=== PATIENT | female | born 1990 | race African-American/Black ===

== ENCOUNTER 2024-07-14 11:42 | Emergency (ER) | payer BC, SELFPAY ==
[2024-07-14 11:46] VITALS: BP 126/71
[2024-07-14 12:08] LABS: % Basophils 0.3 % (0-2); % Immature Granulocytes 0.4 % (0-0.5); % Lymphocytes 24.4 % (20.5-51.1); % Monocytes 4.5 % (1.7-9.3); % Neutrophils 69.4 % (42.2-75.2); Absolute Eosinophils 0.1 10^3/uL (0-0.7); Absolute Lymphocytes 2.5 10^3/uL (1.2-3.4); Absolute Monocytes 0.5 10^3/uL (0.1-0.6); Absolute Neutrophils 7.2 10^3/uL (1.4-6.5); Hematocrit 36.2 % (37.0-47.0); Mean Corp Hgb Conc. 33.1 g/dL (33.0-37.0); Mean Corpuscular Hgb 27.2 pg (27.0-31.0); Mean Corpuscular Volume 82.1 fL (81.0-99.0); Mean Platelet Volume 9.2 fL (7.4-10.4); Nucleated Red Blood Cells % 0 %; Platelet Count 400 10^3/uL (130-400); Red Blood Cell Count 4.41 10^6/uL (4.20-5.40); Red Cell Dist. Width 14.2 % (11.5-14.5); White Blood Cell Count 10.3 10^3/uL (4.8-10.8)
[2024-07-14 12:24] LABS: ALT (SGPT) 24 U/L (0-35); AST (SGOT) 19 U/L (14-36); Albumin 3.7 g/dl (3.5-5.0); Alkaline Phosphatase 93 U/L (38-126); Blood Urea Nitrogen 7 mg/dl (7-17); Calcium 9.2 mg/dl (8.4-10.2); Carbon Dioxide 18 mmol/L (22-30); Chloride 108 mmol/L (98-107); Glucose 118 mg/dl (70-99); Potassium 4.1 mmol/L (3.5-5.1); Sodium 134 mmol/L (135-145); Total Bilirubin 0.5 mg/dl (0.2-1.3); Total Protein 6.8 g/dl (6.3-8.2); eGFR > 60.00
--- NOTE | 2024-07-14 12:29 | ED.GENMED ---
History of Present Illness
General
Chief Complaint: Problems
Source: patient
Exam Limitations: none
Time Seen by Provider: 07/14/24 12:25
History of Present Illness
History of Present Illness:
See MDM
Past History
Past History
ED Past Medical History: Other (HIV)
ED Past Surgical History:
Social History
Tobacco: Non-smoker
Alcohol: None
Phy Exam
Physical Exam
Physical Exam:
See MDM
Course
Orders/Labs/Results
Orders:
Orders
07/14/24 11:53
Type+Screen Urgent
Complete Blood Count/With Diff Urgent
Comprehensive Metabolic Panel Urgent
HCG,SERUM [Beta HCG Quantitative] Urgent
Is this a screen?: No
07/14/24 12:28
US W Transvaginal Urgent
Reason For Exam: abd pain and vag bleeding
07/14/24 12:39
ABO2 Urgent
BBK Wristband Number:
Associate notified that ABO2 has been ordered: ATIFF-ER
Date: 07/14/24
Time: 12:01
Display Specialist ID: [id number]
Abnormal Lab Results
07/14/24
11:53
Hct 36.2 L %
(37.0-47.0)
Absolute Neuts (auto) 7.2 H 10^3/uL
(1.4-6.5)
Sodium 134 L mmol/L
(135-145)
Chloride 108 H mmol/L
(98-107)
Carbon Dioxide 18 L mmol/L
(22-30)
Glucose 118 H mg/dl
(70-99)
07/14/24 11:53
07/14/24 11:53
Vital Signs
Initial and Last Documented VS:
Initial Vital Signs
Temp Pulse Resp BP Pulse Ox
98.5 F 87 16 126/71 100
07/14/24 11:46 07/14/24 11:46 07/14/24 11:46 07/14/24 11:46 07/14/24 11:46
Last Documented Vital Signs
Temp Pulse Resp BP Pulse Ox
98.5 F 87 16 126/71 100
07/14/24 11:46 07/14/24 11:46 07/14/24 11:46 07/14/24 11:46 07/14/24 11:46
Information
Weeks gestation: Weeks: (7)
Location: Location: ([facility])
MDM/Problems Addressed
Differential Diagnosis Includes:
HPI and MDM Narrative:
33-year-old female at approximately 8 weeks gestation is presenting with mild abdominal cramping and vaginal bleeding. She noted some blood while she was wiping.
On exam, she is well-appearing nontoxic. Abdomen soft and nontender. Will obtain beta-hCG quantitative and will obtain ultrasound
Physical exam
General: Well appearing and non-toxic
HEENT: protecting airway
Neck: appears supple
CV: No evidence of cyanosis
Resp: No accessory muscle use
Abd: Non-distended. Soft and nontender
Extremities: No deformities
Neuro: alert
Psych: Normal affect
Skin: Intact
Problems Addressed including Acute and Chronic Conditions affecting care:
1. First trimester vaginal bleeding
Acuity: acute
Prognosis: stable
Details: Will obtain beta quant hCG and ultrasound
Updates
Ultrasound confirms [facility] at 7 weeks and 4 days with appropriate heartbeat. Discussed follow-up with OB
Differential Diagnosis (but not limited to): Miscarriage, threatened miscarriage
Testing considered: Urinalysis but she denies symptom
Drug therapy (if applicable): OTC meds, please see d/c instruction regarding Rx drugs
Amount and/or Complexity of Data Reviewed
Clinical info obtained from: Patient
External data reviewed: N/A
Labs I independently reviewed (but not limited to): Beta-hCG. Blood type A+
Radiology: Ultrasound report reviewed
Pulse Ox: not hypoxic
EKG independently reviewed: N/A
Healthcare Administrator: N/A
Critical Care: N/A
Risk of Complication:
Social Determinants of health: Good social support
Discussed with other providers: N/A
Escalation of Care includes Admit/Obs: After being observed in the Emergency Department, pt stable for discharge.
Occasional wrong word or 'sound a like' substitutions may have occurred due to the inherent limitations of voice recognition software. Read the chart carefully and recognize, using context, where substitutions have occurred.
*Critical Care Note
Total Time (30-74mins, 75-104mins- exclusive of procedures): Not Applicable
ED Attending Note
-
Portions of this chart may have been created with voice recognition software.� Occasional wrong word or��sound alike� substitutions may have occurred due to the inherent limitations of voice recognition software.
Discharge Plan
Departure
Patient Disposition: Home (Routine Discharge)
Date of Disposition: 07/14/24
Time of Disposition: 14:57
Patient with high blood pressure during this ER visit?: No
Discharge Problem:
First-trimester bleeding
Instructions: symptoms
Prescriptions:
No Action
Biktarvy
1 tab PO DAILY
albuterol sulfate 90 mcg/actuation aerosol powdr breath activated
2 inh inhalation Q6H PRN (Reason: shortness of breath or wheezing) Qty: 1 0RF
(DME) Space Chamber Spacer
See Rx Instructions .Route Qty: 1 0RF
Rx Instructions:
As directed
cephalexin 500 mg capsule
500 mg PO Q8H Qty: 21 0RF
Referrals:
Yaritza Stiles, DO [Family Provider] -
Activity Restrictions/Additional Instructions:
Please return for any worsening symptoms.
You may return at any time if you have further concerns.
Please follow up with your OB at the first available appointment. Your baby is measuring 7 weeks and 4 days.
Thank you for choosing [facility].
Interventions
Interventions:
*Risk Screen - Suicide Last Done: 07/14/24 11:46
*General Assessment Last Done: 07/14/24 11:46
*Neglect/Abuse Screening Last Done: 07/14/24 14:47
*ED COVID-19 Vaccine History Last Done: 07/14/24 11:46
ED-Female Genitourinary Assessment Last Done: 07/14/24 13:00
Discharge Date and Time
Print Language: VINCENTIAN
[2024-07-14 15:09] VITALS: BP 124/72
== END 2024-07-14 15:11 | disposition home or self-care (01) ==
LOC: EMR 11:42
PROVIDERS: Emergency Medicine; EMERGENCY PHYSICIAN Student in an Organized Health Care Education/Training Program; FAMILY PHYSICIAN Family Medicine
DX: O20.9 Hemorrhage in early pregnancy, unspecified (principal); Z3A.01 Less than 8 weeks gestation of pregnancy
CPT/HCPCS: 99284; 76801; 76817; 80053; 84702; 85025; 86850; 86900; 86901